=== PATIENT | female | born 1960 | race Caucasian/White ===

== ENCOUNTER 2017-01-24 12:08 | Emergency (ER) | payer BC | END 2017-01-24 12:40 | disposition left against medical advice (07) | LOC: JD.ED 12:08 | DX: Z53.21 Procedure and treatment not carried out due to patient leaving prior to being seen by health care provider (principal) ==

== ENCOUNTER 2017-01-25 02:23 | Emergency (ER) | payer BC ==
[2017-01-25 02:36] VITALS: BP 154/86
[2017-01-25] MEDS ORDERED: Sodium Chloride 0.9% 10 ML Syringe FLUSH PRN (02:49)
[2017-01-25] MEDS ORDERED: Ondansetron 4 MG/2 ML SDV IVPUSH ONE (03:00)
[2017-01-25] MEDS ORDERED: Dicyclomine 10 MG Cap PO ONE (03:00)
[2017-01-25] MEDS: Sodium Chloride 0.9% 1,000 ML IV SCH ×2 (03:11→05:22)
--- NOTE | 2017-01-25 03:16 | EDM.PDOC ---
ED HPI GENERAL MEDICAL PROBLEM - General Chief Complaint: Gastrointestinal Problem Stated Complaint: abdominal pain bleeding Time Seen by Provider: 01/25/17 02:47 Source of Information: Reports: Patient, RN Notes Reviewed - History of Present Illness INITIAL COMMENTS - FREE TEXT/NARRATIVE: 56-year-old female presents with nausea, abdominal pain and bloody type diarrhea. she has had symptoms of nausea and bloating for months and did have a CT of her abdomen pelvis done in [place] about 2 weeks ago which is reported to have been normal. She has been constipated recently and then after having had a BM yesterday she started having frequent watery diarrhea which then "became bloody". Yesterday afternoon and evening she was having severe upper abdominal pain and cramping as well as pain and cramping to the left abdomen. Now it is somewhat better, the cramps are further spaced apart but still very uncomfortable when present. She's had nausea but no vomiting. She states that she has had upper GI endoscopy in the past year as well as colonoscopy about one year ago both of which did not show abnormality. She does not feel weak dizzy or lightheaded. Her mouth does feel very dry. - Related Data Allergies Allergy/AdvReac Type Severity Reaction Status Date / Time codeine Allergy Mild Itching Verified 01/17/16 03:07 Home Meds: Home Meds Amitriptyline HCl 1 - 3 tab PO BEDTIME 05/14/15 [History] Cholecalciferol (Vitamin D3) [Vitamin D3] 1 tab PO DAILY 05/14/15 [History] Multivitamin [Gummi Bear Multivitamin] 2 tab.chew PO DAILY 05/14/15 [History] Ondansetron [Zofran ODT] 4 mg PO Q6H PRN #20 tab.dis 01/17/16 [Rx] Aspirin 650 mg PO Q6H PRN 01/25/17 [History] Ibuprofen 400 mg PO DAILY PRN 01/25/17 [History] Levofloxacin [Levaquin] 500 mg PO Q24H #5 tablet 01/25/17 [Rx] Methotrexate Sodium [Methotrexate] 15 mg PO DAILY 01/25/17 [History] Simvastatin [Zocor] 10 mg PO BEDTIME 01/25/17 [History] Past Medical History HEENT History: Reports: None Cardiovascular History: Reports: High Cholesterol, Hypertension, Other (See Below) Other Cardiovascular History: mitral valve prolapse Gastrointestinal History: Reports: Cholelithiasis Other Gastrointestinal History: Abdominal pain, bloating, epigastric pain, large gallstone, LLQ pain, nausea, benign colon tumor Genitourinary History: Reports: UTI, Recurrent 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 Musculoskeletal History: Reports: Fibromyalgia Other Psychiatric History: etoh abuse Dermatologic History: Reports: Psoriasis - Infectious Disease History Infectious Disease History: Reports: Chicken Pox, Measles - Past Surgical History HEENT Surgical History: Reports: Tonsillectomy GI Surgical History: Reports: Cholecystectomy, Colonoscopy Female Surgical History: Reports: Breast Reduction, Hysterectomy, Salpingo- Oophorectomy Social & Family History - Family History Family Medical History: Noncontributory - Tobacco Use Smoking Status *Q: Never Smoker Second Hand Smoke Exposure: No - Caffeine Use Caffeine Use: Reports: None - Alcohol Use Days Per Week of Alcohol Use: 2 Number of Drinks Per Day: 2 Total Drinks Per Week: 4 - Recreational Drug Use Recreational Drug Use: No Drug Use in Last 12 Months: No ED ROS GENERAL - Review of Systems Review Of Systems: See Below Constitutional: Denies: Fever, Chills, Diaphoresis HEENT: Denies: Throat Pain Respiratory: Denies: Shortness of Breath, Pleuritic Chest Pain Cardiovascular: Denies: Chest Pain GI/Abdominal: Reports: Abdominal Pain, Constipation, Diarrhea, Hematochezia, Nausea. Denies: Vomiting Musculoskeletal: Reports: No Symptoms Skin: Reports: No Symptoms Neurological: Reports: No Symptoms ED EXAM, GI/ABD - Physical Exam Exam: See Below General Appearance: Alert, No Apparent Distress Throat/Mouth: Normal Inspection, Other (Oral mucosa is moderately dry) Head: Atraumatic. No: Facial Swelling Neck: Supple, Full Range of Motion Respiratory/Chest: No Respiratory Distress, Lungs Clear, Normal Breath Sounds Cardiovascular: Tachycardia GI/Abdominal Exam: Soft, Tender (Moderate tenderness upper mid abdomen, left abdomen with very minimal tenderness right upper quadrant). No: Guarding, Rebound Back Exam: No: CVA Tenderness (L), CVA Tenderness (R) Extremities: Normal Inspection Neurological: Alert, Oriented, No Motor/Sensory Deficits Skin Exam: Warm, Dry, Normal Color Course - Vital Signs Last Recorded V/S: Last Vital Signs Temp 98.0 F 01/25/17 02:30 Pulse 105 H 01/25/17 02:30 Resp 16 11/13/17 02:30 BP 154/86 H 01/25/17 02:30 Pulse Ox 98 01/25/17 02:30 - Orders/Labs/Meds Orders: Active Orders 24 hr Category Date Time Status Peripheral IV Care [RC] . DIRECTED Care 01/25/17 02:49 Active Sodium Chloride 0.9% [Normal Saline] 1,000 ml Med 01/25/17 03:00 Active IV ONETIME Sodium Chloride 0.9% [Normal Saline] 1,000 ml Med 01/25/17 05:15 Active IV ONETIME Sodium Chloride 0.9% [Saline Flush] Med 01/25/17 02:49 Active 10 ml FLUSH ASDIRECTED PRN Peripheral IV Insertion Adult [OM.PC] Stat Oth 01/25/17 02:49 Ordered Medication Orders Sodium Chloride (Normal Saline) 1,000 mls @ 999 mls/hr IV ONETIME GLORIA Last Infusion: 01/25/17 04:12 Dose: 999 mls/hr Admin: 01/25/17 03:11 Dose: 999 mls/hr Sodium Chloride (Normal Saline) 1,000 mls @ 999 mls/hr IV ONETIME GLORIA Last Admin: 01/25/17 05:22 Dose: 999 mls/hr Sodium Chloride (Saline Flush) 10 ml FLUSH ASDIRECTED PRN PRN Reason: Keep Vein Open Last Admin: 01/25/17 03:13 Dose: 10 ml Labs: Laboratory Tests 01/25/17 01/25/17 01/25/17 Range/Units 03:30 03:30 03:30 WBC 12.24 H (3.98-10.04) K/mm3 RBC 3.94 L (3.98-5.22) M/mm3 Hgb 12.4 (11.2-15.7) gm/L Hct 38.1 (34.1-44.9) % MCV 96.7 H (79.4-94.8) fl MCH 31.5 (25.6-32.2) pg MCHC 32.5 (32.2-35.5) g/dl RDW Std Deviation 44.3 (36.4-46.3) fL Plt Count 268 (182-369) K/mm3 MPV 9.2 L (9.4-12.3) fl Neut % (Auto) 78.4 H (34.0-71.1) % Lymph % (Auto) 13.9 L (19.3-51.7) % [place] % (Auto) 6.7 (4.7-12.5) % Eos % (Auto) 0.7 (0.7-5.8) Baso % (Auto) 0.1 (0.1-1.2) % Neut # (Auto) 9.60 H (1.56-6.13) K/mm3 Lymph # (Auto) 1.70 (1.18-3.74) K/mm3 [place] # (Auto) 0.82 H (0.24-0.36) K/mm3 Eos # (Auto) 0.09 (0.04-0.36) K/mm3 Baso # (Auto) 0.01 (0.01-0.08) K/mm3 Sodium 141 (136-145) mEq/L Potassium 3.6 (3.5-5.1) mEq/L Chloride 104 (98-107) mEq/L Carbon Dioxide 28 (21-32) mEq/L Anion Gap 12.6 (5-15) BUN 13 (7-18) mg/dL Creatinine 0.7 (0.55-1.02) mg/dL Est Cr Clr Drug Dosing 86.01 mL/min Estimated GFR (MDRD) > 60 (>60) mL/min BUN/Creatinine Ratio 18.6 H (14-18) Glucose 111 H (74-106) mg/dL Calcium 8.7 (8.5-10.1) mg/dL Total Bilirubin 0.3 (0.2-1.0) mg/dL AST 19 (15-37) U/L ALT 25 (14-59) U/L Alkaline Phosphatase 122 H (46-116) U/L C-Reactive Protein 1.4 H* (<1.0) mg/dL Total Protein 6.6 (6.4-8.2) g/dl Albumin 3.4 (3.4-5.0) g/dl Globulin 3.2 gm/dL Albumin/Globulin Ratio 1.1 (1-2) Lipase 99 (73-393) U/L Meds: Medications Generic Name Dose Route Start Last Admin Trade Name Freq PRN Reason Stop Dose Admin Sodium Chloride 1,000 mls @ 999 mls/hr 01/25/17 03:00 01/25/17 04:12 Normal Saline IV Infused ONETIME GLORIA Infusion Sodium Chloride 1,000 mls @ 999 mls/hr 01/25/17 05:15 01/25/17 05:22 Normal Saline IV 999 mls/hr ONETIME GLORIA Administration Sodium Chloride 10 ml 01/25/17 02:49 01/25/17 03:13 Saline Flush FLUSH 10 ml ASDIRECTED PRN Administration Keep Vein Open Discontinued Medications Generic Name Dose Route Start Last Admin Trade Name Sethq PRN Reason Stop Dose Admin Dicyclomine HCl 10 mg 01/25/17 03:00 01/25/17 03:11 Bentyl PO 01/25/17 03:01 10 mg ONETIME ONE Administration Hydromorphone HCl 0.5 mg 01/25/17 04:31 01/25/17 04:48 Dilaudid IVPUSH 01/25/17 04:32 0.5 mg ONETIME ONE Administration Levofloxacin/Dextrose 500 mg/ 100 mls @ 100 mls/hr 01/25/17 05:13 01/25/17 05 :22 Premix IV 01/25/17 06:12 100 mls/hr ONETIME ONE Administration Methylprednisolone Sodium Succinate 125 mg 01/25/17 05:06 01/25/17 05:22 Solu-Medrol IVPUSH 01/25/17 05:07 125 mg ONETIME ONE Administration Ondansetron HCl 4 mg 01/25/17 03:00 01/25/17 03:12 Zofran IVPUSH 01/25/17 03:01 4 mg ONETIME ONE Administration Departure - Departure Time of Disposition: 06:20 Disposition: Home, Self-Care 01 Condition: Fair Clinical Impression: Colitis - Discharge Information Prescriptions: Levofloxacin [Levaquin] 500 mg PO Q24H #5 tablet Instructions: Colitis Referrals: Ciarra Hand MD [Primary Care Provider] - Forms: ED Department Discharge, ED Return to Work/School Form Additional Instructions: Clear liquids only until this evening or until symptoms of diarrhea have completely cleared, Levaquin 500 mg daily for 5 days, begin probiotic today and take that twice daily for 1 week and thereafter as needed, continue Prevacid as recently prescribed. follow-up with your medical provider in about 2-3 days if possible for recheck. Consider need for repeat colonoscopy, return to ED if symptoms worsening not improving over the next 1-2 days as expected. - My Orders Last 24 Hours: My Active Orders 01/25/17 02:49 Peripheral IV Care [RC] . DIRECTED Sodium Chloride 0.9% [Saline Flush] 10 ml FLUSH ASDIRECTED PRN Peripheral IV Insertion Adult [OM.PC] Stat 01/25/17 03:00 Sodium Chloride 0.9% [Normal Saline] 1,000 ml IV ONETIME 01/25/17 05:15 Sodium Chloride 0.9% [Normal Saline] 1,000 ml IV ONETIME - Assessment/Plan Last 24 Hours: My Active Orders 01/25/17 02:49 Peripheral IV Care [RC] . DIRECTED Sodium Chloride 0.9% [Saline Flush] 10 ml FLUSH ASDIRECTED PRN Peripheral IV Insertion Adult [OM.PC] Stat 01/25/17 03:00 Sodium Chloride 0.9% [Normal Saline] 1,000 ml IV ONETIME 01/25/17 05:15 Sodium Chloride 0.9% [Normal Saline] 1,000 ml IV ONETIME
[2017-01-25] MEDS ORDERED: HYDROmorphone 0.5 MG/0.5 ML Syringe IVPUSH ONE (04:31)
[2017-01-25] MEDS ORDERED: methylPREDNISolone Sodium Succinate 125 MG/2 ML SDV IVPUSH ONE (05:06)
[2017-01-25] MEDS ORDERED: Levofloxacin/Dextrose 5%-Water 500 MG in Premix Bag 1 BAG IV ONE (05:13)
[2017-01-25] MEDS ORDERED: Sodium Chloride 0.9% 1,000 ML IV SCH (05:15)
== END 2017-01-25 06:33 | disposition home or self-care (01) ==
LOC: JD.ED 02:23
DX: K52.9 Noninfective gastroenteritis and colitis, unspecified (principal); I10 Essential (primary) hypertension; Z88.5 Allergy status to narcotic agent; Z79.82 Long term (current) use of aspirin; Z79.899 Other long term (current) drug therapy
CPT/HCPCS: 36415; 80053; 83690; 85025; 86140; 96361; 96365; 96375; 99284; A9270; J1170; J1956; J2405; J2930; J7040; J7050

== ENCOUNTER 2017-06-11 12:33 | Emergency (ER) | payer BC ==
[2017-06-11] MEDS ORDERED: Alum Hydrox/Mag Hydrox/Simeth 30 ML, Lidocaine 2% 15 ML PO STA ×2 (13:10)
--- NOTE | 2017-06-11 13:58 | EDM.PDOC ---
ED HPI GENERAL MEDICAL PROBLEM - General Chief Complaint: Abdominal Pain Stated Complaint: ABDOMINAL PAIN Time Seen by Provider: 06/11/17 12:45 Source of Information: Reports: Patient, Family () History Limitations: Reports: No Limitations - History of Present Illness INITIAL COMMENTS - FREE TEXT/NARRATIVE: The patient states that she developed esophageal and upper abdominal pain, along with nausea, yesterday, 06/10/2017. She states that she has had similar symptoms perhaps 30 times over the past 1.5 years. She states that she has had countless workups, including several ED visits, abdominal x-rays, CT scans of her abdomen and pelvis, EGDs and colonoscopies,, always with negative findings. She has been put on a special diet, and treated with antibiotics, with no relief. She is currently scheduled to follow-up with her Specialty Sales Representative in [place] this coming , 06/17/2017. The patient is currently on omeprazole for presumed GERD. The patient is on methotrexate for presumed psoriatic arthritis. The patient estimates that she has undergone 8 CT scans of her abdomen and pelvis, previously. 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: Other (see below) Abdomen Pain Score (Numeric/FACES): 8 - Related Data Allergies Allergy/AdvReac Type Severity Reaction Status Date / Time codeine Allergy Mild Itching Verified 01/17/16 03:07 Home Meds: Home Meds Amitriptyline HCl 1 - 3 tab PO BEDTIME 05/14/15 [History] Cholecalciferol (Vitamin D3) [Vitamin D3] 1 tab PO DAILY 05/14/15 [History] Multivitamin [Gummi Bear Multivitamin] 2 tab.chew PO DAILY 05/14/15 [History] Ondansetron [Zofran ODT] 4 mg PO Q6H PRN #20 tab.dis 01/17/16 [Rx] Aspirin 650 mg PO Q6H PRN 01/25/17 [History] Ibuprofen 400 mg PO DAILY PRN 01/25/17 [History] Methotrexate Sodium [Methotrexate] 15 mg PO WEEKLY 01/25/17 [History] Simvastatin [Zocor] 10 mg PO BEDTIME 01/25/17 [History] Past Medical History Cardiovascular History: Reports: High Cholesterol Gastrointestinal History: Reports: GERD 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: 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 Musculoskeletal History: Reports: Arthritis (Psoriatic, presumed, not confirmed) Psychiatric History: Reports: Addiction (Alcohol), Depression, Other (See Below ) (Fibromyalgia) Endocrine/Metabolic History: Reports: Obesity/BMI 30+ Dermatologic History: Reports: Psoriasis - Infectious Disease History Infectious Disease History: Reports: Chicken Pox, Measles - Past Surgical History HEENT Surgical History: Reports: Tonsillectomy GI Surgical History: Reports: Cholecystectomy (2016), Colonoscopy, EGD Female Surgical History: Reports: Breast Reduction, Hysterectomy, Salpingo- Oophorectomy Social & Family History - Family History Family Medical History: Noncontributory - Tobacco Use Smoking Status *Q: Never Smoker Second Hand Smoke Exposure: Yes - Caffeine Use Caffeine Use: Reports: Tea Other Caffeine Use: decaff; diet - Alcohol Use Alcohol Use History: Yes Days Per Week of Alcohol Use: 2 Number of Drinks Per Day: 2 Total Drinks Per Week: 4 - Recreational Drug Use Recreational Drug Use: No - Living Situation & Occupation Living situation: Reports: , with Spouse Occupation: Employed (Part-time) ED ROS GENERAL - Review of Systems Review Of Systems: ROS reveals no pertinent complaints other than HPI. ED EXAM, GI/ABD - Physical Exam Exam: See Below Exam Limited By: No Limitations General Appearance: Alert, WD/WN, No Apparent Distress, Anxious Eyes: Bilateral: Normal Appearance, EOMI Ears: Normal External Exam, Hearing Grossly Normal Nose: Normal Inspection, No Blood Throat/Mouth: Normal Inspection, Normal Lips, Normal Voice, No Airway Compromise Head: Atraumatic, Normocephalic Neck: Normal Inspection, Full Range of Motion Respiratory/Chest: No Respiratory Distress, Lungs Clear, Normal Breath Sounds, No Accessory Muscle Use Cardiovascular: Normal Peripheral Pulses, Regular Rate, Rhythm, No Gallop, No JVD, No Murmur, No Rub GI/Abdominal Exam: Normal Bowel Sounds, Soft, No Organomegaly, No Distention, No Abnormal Bruit, No Mass, Tender (Minimal epigastric. Nontender elsewhere.), Other (Obese) (Female) Exam: Deferred Rectal (Female) Exam: Deferred Back Exam: Normal Inspection, Full Range of Motion, NT Extremities: Normal Inspection, Normal Range of Motion, No Pedal Edema, Normal Capillary Refill Neurological: Alert, Oriented, Normal Cognition, No Motor/Sensory Deficits Psychiatric: Anxious Skin Exam: Warm, Dry, Intact, Normal Color, No Rash Course - Vital Signs Last Recorded V/S: Last Vital Signs Temp 36.6 C 06/11/17 12:45 Pulse 106 H 06/11/17 12:45 Resp 20 06/11/17 12:45 BP 145/88 H 06/11/17 12:45 Pulse Ox 97 06/11/17 12:45 - Orders/Labs/Meds Orders: Active Orders 24 hr Category Date Time Status Abdomen 1V Upright [CR] Stat Exams 06/11/17 13:10 Taken Meds: Medications Discontinued Medications Generic Name Dose Route Start Last Admin Trade Name Dong PRN Reason Stop Dose Admin Al Hydroxide/Mg Hydroxide 30 0 ml 06/11/17 13:10 06/11/17 13:29 ml/ Lidocaine HCl 15 ml PO 06/11/17 13:11 45 ml ONETIME STA Administration - Re-Assessments/Exams Free Text/Narrative Re-Assessment/Exam: 06/11/17 13:46 As the patient states that she has had similar symptoms perhaps 30 times over the past 1-1/2 years, with callus workups, always negative, we elected to not repeat blood work or CT scan today. Additionally, the patient's abdominal exam is grossly benign. We did, however, proceed with an upright abdominal radiograph and a GI cocktail. Upright abdominal radiograph appears to demonstrate a nonspecific bowel gas pattern. No free air. Martha in the right upper quadrant, consistent with cholecystectomy, noted. Mild thoracolumbar scoliosis noted. Formal read per the Radiologist pending. 06/11/17 14:03 The patient states that the GI cocktail gave her relief of her throat and esophageal pain, however, it did not give her any relief of her upper abdominal pain. Additionally, the patient believes that her upper abdomen is swelling and enlarging right before her eyes. I do not see any change. I reviewed a prior CT scan of the abdomen and pelvis from 01/17/2016. No hiatal hernia seen. No abdominal wall herniation. I also reviewed a prior abdominal x-ray from 06/17/2015 , which looks remarkably from today's abdominal radiograph, and was read as unremarkable by the Radiologist at that time, as well. We again discussed the option of blood work and a CT scan of the abdomen and pelvis. The patient does not want any of those tests done today, recognizing that they have always been negative in the past, and I concur. Because the patient had some relief with the GI cocktail, I'm recommending that she can take an [id number] antacid such as Tums, Rolaids, or Maalox on an as- needed basis. I explained that no further diagnostic tests are available from the ED, the patient will need to see her Specialty Sales Representative on her previously scheduled appointment on 06/17/2017. The patient expressed frustration, but understanding. Departure - Departure Time of Disposition: 14:07 Disposition: Home, Self-Care 01 Condition: Fair Clinical Impression: Recurrent upper abdominal pain - Discharge Information Referrals: Ciarra Hand MD [Primary Care Provider] - Forms: ED Department Discharge Additional Instructions: You were seen in the emergency room for recurrent upper abdominal pain and nausea. Workup in the ER included an upright abdominal x-ray, which found no new problems. Your x-ray was compared with a prior CT scan from 01/17/2016 and a prior abdominal x-ray from 06/17/2015, with no significant differences. Further workup, including blood work and urinalysis were offered, but declined. Repeat CT scan of your abdomen and pelvis was not recommended, due to excessive radiation. You had some relief of your throat discomfort following a GI cocktail, indicating that at least some of your symptoms may be related to acid reflux. As discussed, you may take an [id number] antacid such as Tums, Rolaids Maalox, or Mylanta, on an as-needed basis a couple of hours after you take your omeprazole. As discussed, we recommend that you discontinue all alcohol consumption. Follow-up with your Specialty Sales Representative at your previously scheduled appointment this coming , 06/17/2017. If any other problems, please do not hesitate to return to the ER. - My Orders Last 24 Hours: My Active Orders 06/11/17 13:10 Abdomen 1V Upright [CR] Stat - Assessment/Plan Last 24 Hours: My Active Orders 06/11/17 13:10 Abdomen 1V Upright [CR] Stat
[2017-06-11 14:24] VITALS: BP 107/60
--- NOTE | 2017-06-11 15:20 | CR ---
Abdomen: Upright view of the abdomen was obtained. Comparison: Prior abdominal x-ray of 06/17/15. Bowel gas pattern appears within normal limits. Air-fluid levels are seen within the right colon which can be seen normally. No free air is seen. Bony structures shows minimal scoliosis within the spine and minimal degenerative change. No abnormal calcifications are seen. Impression: 1. Nonspecific upright abdominal x-ray. Diagnostic code #2
== END 2017-06-11 14:20 | disposition home or self-care (01) ==
LOC: JD.ED 12:33
DX: R10.13 Epigastric pain (principal); K21.9 Gastro-esophageal reflux disease without esophagitis; Z88.5 Allergy status to narcotic agent; E78.00 Pure hypercholesterolemia, unspecified; F32.9 Major depressive disorder, single episode, unspecified; Z86.19 Personal history of other infectious and parasitic diseases; Z79.899 Other long term (current) drug therapy
CPT/HCPCS: 74018; 99284; A9270; 99283

== ENCOUNTER 2021-05-17 09:55 | Emergency (ER) | payer BC, OTHER ==
[2021-05-17 13:19] VITALS: BP 111/78; PULSE 88
== END 2021-05-17 13:20 | disposition home or self-care (01) ==
LOC: JD.ED 09:55
DX: R07.89 Other chest pain (principal); E78.00 Pure hypercholesterolemia, unspecified; K21.9 Gastro-esophageal reflux disease without esophagitis; E66.9 Obesity, unspecified; Z68.35 Body mass index [BMI] 35.0-35.9, adult; Z79.899 Other long term (current) drug therapy
CPT/HCPCS: 36415; 71045; 71045-26; 80053; 83690; 84484; 85025; 93005; 93010; 99285; 99285-25